=== PATIENT | female | born 1975 | race Caucasian/White ===

== ENCOUNTER 2021-01-16 08:58 | Day surgery (SDC) | payer BC ==
[~2021-01-16] VITALS: Ht 165.1 cm; Wt 59.5 kg
[2021-01-16 10:01] LABS: BASOPHILS 0.3 % (0-2); EOSINOPHILS 1.5 % (0-7); HEMATOCRIT 46.9 % (36.0-48.0); HEMOGLOBIN 16.1 g/dL (12-16); IMMATURE GRANULOCYTES 0.3 % (0-5); LYMPHOCYTE ABS# 2.56 10x3/uL (1.18-3.74); LYMPHOCYTES 24.5 % (15-50); MCH 30.3 pg (26.0-34.0); MCHC 34.3 g/dL (31.0-37.0); MCV 88.2 fL (80.0-100.0); MEAN PLATELET VOLUME 10.2 fL (7.4-10.4); NEUTROPHIL ABS# 6.85 10x3/uL (1.56-6.13); NEUTROPHILS 65.4 % (40-80); PLATELET COUNT 249 10x3/uL (130-400); RBC 5.32 10x6/uL (4.00-5.40); RDW 13.6 % (11.5-14.5); WBC 10.5 10x3/uL (4.8-10.8)
[2021-01-16] MEDS ORDERED: VITAMIN D325 MC1 PO (10:08)
[2021-01-16] MEDS ORDERED: CYCLOBENZAPRINE5 MG PO (10:08)
[2021-01-16] MEDS ORDERED: RITALIN10 MG PO (10:08)
[2021-01-16 10:09] LABS: HCG SERUM NEGATIVE (NEGATIVE)
[2021-01-16] MEDS ORDERED: NEURONTIN600 MG PO (10:09)
[2021-01-16] MEDS ORDERED: ESTRADIOL CYPIONATE 5 MG (10:09)
[2021-01-16] MEDS ORDERED: BUSPAR5 MG PO (10:10)
[2021-01-16] MEDS ORDERED: ABILIFY2 MG PO (10:10)
[2021-01-16 10:17] VITALS: BP 114/60; Ht 165.1 cm; Wt 59.5 kg
--- NOTE | 2021-01-16 13:20 | NUR ---
SCOPE PATCH BEHIND RT EAR ON ADMIT
== END 2021-01-16 15:15 | disposition home or self-care (01) ==
LOC: EDBD 08:58 → D.OPS 08:58
PROVIDERS: Anesthesiology; ATTEND Obstetrics & Gynecology Maternal & Fetal Medicine
DX: N39.3 Stress incontinence (female) (male) (principal); N90.7 Vulvar cyst; N99.3 Prolapse of vaginal vault after hysterectomy; Z51.89 Encounter for other specified aftercare; T81.31XD Disruption of external operation (surgical) wound, not elsewhere classified, subsequent encounter